=== PATIENT | female | born 1975 | race Two or more races ===

== ENCOUNTER 2018-04-10 21:58 | Emergency (ER) | payer OTHER ==
[~2018-04-10] VITALS: Ht 167.6 cm; Wt 60.3 kg
[~2018-04-10 21:58] MED LIST: CETI10TA22 PO; FLUT9.9S NS
--- NOTE | 2018-04-10 22:03 | ED.ADGEN ---
Past History Past Medical History: No Pertinent History Past Surgical History: No Surgical History Alcohol Use: None Drug Use: None Adult General Chief Complaint Chief Complaint ".. I trying to get some extra work hours.. and there was this pallet....with washing machine... and the pallet came down on my Lt. Little finger... and I tried to pull it out... and it daija pulled the tip of my finger off... " HPI HPI Patient is a 43 year old female who presents with above hx and complaints of deglove crush injury to Lt. 5th finger tip while working at [employer]. . Patient does not remember her last tetanus. Pt. does have flexion and extension. Tip of finger no capillary refill or two point sensation. Nail of finger dislocated from it's bed. No other injuries reported. Pt. in Rt. hand dominate. No hx. of immunosuppression. Review of Systems Review of Systems Constitutional: Denies fever or chills [] Eyes: Denies change in visual acuity, redness, or eye pain [] HENT: Denies nasal congestion or sore throat [] Respiratory: Denies cough or shortness of breath [] Cardiovascular: No additional information not addressed in HPI [] GI: Denies abdominal pain, nausea, vomiting, bloody stools or diarrhea [] : Denies dysuria or hematuria [] Musculoskeletal: Denies back pain or joint pain []Crush Injury, deglove and fx. Lt 5th finger tip. Integument: Denies rash or skin lesions [] Neurologic: Denies headache, focal weakness or sensory changes [] Endocrine: Denies polyuria or polydipsia [] All other systems were reviewed and found to be within normal limits, except as documented in this note. Family History Family History Non-contributory Current Medications Current Medications Current Medications Medications (Trade) Dose Ordered Sig/Yakelin Start Time Stop Time Status Last Admin Dose Admin Aspirin (Children'S Aspirin) 81 mg 1X ONCE 04/10/18 23:55 04/10/18 23:56 DC Bupivacaine HCl (Sensorcaine Mpf 0.5%) 30 ml 1X ONCE 04/10/18 23:00 04/10/18 23:01 DC Ceftriaxone Sodium (Rocephin Im) 1 gm 1X ONCE 04/10/18 23:00 04/10/18 23:01 DC 04/10/18 23:29 1 GM Lidocaine HCl 20 ml 1X ONCE 04/10/18 23:00 04/10/18 23:01 DC Morphine Sulfate (Morphine 10mg Syringe) 10 mg 1X ONCE 04/10/18 22:30 04/10/18 22:31 DC 04/10/18 22:27 10 MG Tetanus/ Diphtheria Toxoids Adsorbed (Tenivac Vial) 0.5 ml ONCE ONCE 04/10/18 23:00 04/10/18 23:01 DC 04/10/18 23:29 0.5 ML Allergies Allergies Allergies Coded Allergies Type Severity Reaction Last Updated Verified No Known Drug Allergies 03/27/15 No Physical Exam Physical Exam Constitutional:in acute distress, non-toxic appearance. [] HENT: Normocephalic, atraumatic, bilateral external ears normal, oropharynx moist, no oral exudates, nose normal. [] Eyes: PERRLA, EOMI, conjunctiva normal, no discharge. [] Neck: Normal range of motion, no tenderness, supple, no stridor. [] Cardiovascular:Heart rate regular rhythm, no murmur [] Lungs & Thorax: Bilateral breath sounds clear to auscultation [] Abdomen: Bowel sounds normal, soft, no tenderness, no masses, no pulsatile masses. [] Skin: Warm, dry, no erythema, no rash. [] Back: No tenderness, no CVA tenderness. [] Extremities: No tenderness, no cyanosis, no clubbing, ROM intact, no edema. [] Except 5th finger Lt hand as per HPI. Neurologic: Alert and oriented X 3, normal motor function, normal sensory function, no focal deficits noted. [] Psychologic: Affect normal, judgement normal, mood normal. [] Current Patient Data Vital Signs Vital Signs Date Time Temp Pulse Resp B/P (MAP) Pulse Ox O2 Delivery O2 Flow Rate FiO2 04/11/18 00:10 98.3 74 16 121/67 (85) 96 Room Air EKG EKG [] Radiology/Procedures Radiology/Procedures My interpretation of X-ray shows crush fx Lt 5 th finger tip. [] Course & Med Decision Making Course & Med Decision Making Pertinent Labs and Imaging studies reviewed. (See chart for details) Procedure Note: Laceration repair and bulk splint.- Finger washed with surgical soap. Digital block with sensorcaine and lidocaine. Wound re- irrigated with liter of normal saline in range of motion. Placed 6-x Prolene 4 -0 to approximate tip of finger. Polysporin. Bulk dressing and splint. Pt. to take daily Aspirin 81 mg. Tylenol and Ibuprofen for pain. Marked pain take Vicoprofen up 4 x day. . Polysporin 4 x day once initial dressing removed. Dressing must be changed immediately if soil or wet. Take Keflex 500 three times a day x 7 days. Bulk splint. High probability lost of fingertip. Must follow with work comp. Will need input of plastic or hand surgery. Must follow up. Sutures out in 10 days. [] Final Impression Final Impression 1. Crush, fracture and deglove injury to Lt 5th finger. [] Dragon Disclaimer Dragon Disclaimer This electronic medical record was generated, in whole or in part, using a voice recognition dictation system. REGAN OTT MD Apr 10, 2018 22:03
[2018-04-10] MEDS ORDERED: MORPHINE SULFATE 10 MG/ML SYRINGE. SQ ONE (22:30)
[2018-04-10] MEDS ORDERED: BUPIVACAINE MPF 0.5% 30 ML VIAL. SQ ONE (23:00)
[2018-04-10] MEDS ORDERED: LIDOCAINE 2% 20 ML VIAL. IJ ONE (23:00)
[2018-04-10] MEDS ORDERED: cefTRIAXone IM 1 GM VIAL IM ONE (23:00)
[2018-04-10] MEDS ORDERED: TETANUS AND DIPHTHERIA TOX/PF 0.5 ML VIAL. VAX IM ONE (23:00)
[2018-04-10] MEDS ORDERED: HYDR-79 PO (23:35)
[2018-04-10] MEDS ORDERED: CEPH-264 PO (23:35)
[2018-04-10] MEDS ORDERED: ASPIRIN 81 MG TAB.CHEW PO ONE (23:55)
[2018-04-11 00:10] VITALS: BP 121/67
--- NOTE | 2018-04-11 02:32 | RAD ---
Indication: [place] left hand fifth digit. TECHNIQUE: 3 views of the left hand COMPARISON: None FINDINGS: Moderately displaced fracture of the tuft of the fifth finger with associated soft tissue laceration. IMPRESSION: As above. Electronically signed by: Mauro Gamino DO (04/11/2018 2:28 AM) [facility]
== END 2018-04-11 00:10 | disposition home or self-care (01) ==
LOC: ER 21:58
DX: S62.607A Fracture of unspecified phalanx of left little finger, initial encounter for closed fracture (principal); W23.0XXA Caught, crushed, jammed, or pinched between moving objects, initial encounter; Y93.89 Activity, other specified; Y99.8 Other external cause status; Y92.89 Other specified places as the place of occurrence of the external cause
CPT/HCPCS: 12001; 73130; 90471; 90714; 96372; 99284; J0696; J2270; 29130

== ENCOUNTER → 2018-06-20 | Outpatient (CLI) | payer OTHER ==
[~2018-06-20] MED LIST changes: +CEPH-264 PO; +HYDR-79 PO
--- NOTE | 2018-06-20 17:38 | RAD ---
EXAM: PA view of the left hand, lateral view of the left small finger DATE: 06/20/2018 12:00 AM INDICATION: FOLLOW UP FOR LEFT 5TH DIGIT FRACTURE FROM 04/10, STILL HAVING PAIN COMPARISON: Radiograph 04/10/2018 FINDINGS/ IMPRESSION: Small finger tuft avulsion fracture is again seen, mildly displaced. The degree of soft tissue swelling and irregularity has improved. Electronically signed by: Medardo Young MD (06/20/2018 5:34 PM) [facility]
== END | disposition home or self-care (01) ==
LOC: PMG 10:52
PROVIDERS: ATTEND Physician Assistant
DX: S62.607D Fracture of unspecified phalanx of left little finger, subsequent encounter for fracture with routine healing (principal); M79.89 Other specified soft tissue disorders; G43.909 Migraine, unspecified, not intractable, without status migrainosus; X58.XXXD Exposure to other specified factors, subsequent encounter
CPT/HCPCS: 73140

== ENCOUNTER 2019-05-29 19:42 | Emergency (ER) | payer OTHER ==
[~2019-05-29] VITALS: Ht 167.6 cm; Wt 64.0 kg
[~2019-05-29 19:42] MED LIST changes: +HYDR-1179 PO; -HYDR-79 PO
[2019-05-29] MEDS ORDERED: IV NORMAL SALINE 1,000ML 1,000 ML IV ONE (20:30)
[2019-05-29] MEDS ORDERED: METOCLOPRAMIDE HCL 10 MG/2 ML VIAL. IV ONE (20:30)
[2019-05-29] MEDS ORDERED: DEXAMETHASONE SOD PHOS 10 MG/ML VIAL IV ONE (20:30)
[2019-05-29] MEDS ORDERED: diphenhydrAMINE 50 MG/ML VIAL IVP ONE (20:30)
[2019-05-29] MEDS ORDERED: ASPIRIN 325 MG TABLET PO ONE (20:30)
[2019-05-29] MEDS ORDERED: KETOROLAC 15 MG/ML VIAL. IV ONE (20:30)
[2019-05-29 21:33] LABS: BASO # 0.1 x10^3/uL (0.0-0.2); BASO % 1 % (0-3); EOS # 0.1 x10^3/uL (0.0-0.7); EOS % 2 % (0-3); HEMATOCRIT 39.8 % (36.0-47.0); HEMOGLOBIN 13.3 g/dL (12.0-15.5); LYMPH # 2.3 x10^3/uL (1.0-4.8); LYMPH % 29 % (24-48); MEAN CORPUSCULAR HEMOGLOBIN 31 pg (25-35); MEAN CORPUSCULAR HGB CONC 33 g/dL (31-37); MEAN CORPUSCULAR VOLUME 94 fL (79-100); MONO # 0.6 x10^3/uL (0.0-1.1); MONO % 7 % (0-9); NEUT % 62 % (31-73); PLATELET COUNT 323 x10^3/uL (140-400); RED BLOOD COUNT 4.26 x10^6/uL (3.50-5.40); RED CELL DISTRIBUTION WIDTH 13.7 % (11.5-14.5); WHITE BLOOD COUNT 8.2 x10^3/uL (4.0-11.0)
[2019-05-29 21:55] LABS: ALBUMIN 3.8 g/dL (3.4-5.0); ALBUMIN/GLOBULIN RATIO 1.1 (1.0-1.7); CALCIUM 9.1 mg/dL (8.5-10.1); CREATININE 0.9 mg/dL (0.6-1.0); GFR 68.3; MAGNESIUM 2.2 mg/dL (1.8-2.4); TOTAL BILIRUBIN 0.1 mg/dL (0.2-1.0); TOTAL PROTEIN 7.2 g/dL (6.4-8.2)
[2019-05-29 23:24] VITALS: BP 103/65
--- NOTE | 2019-05-29 23:32 | PHYS DOC ---
Past History Past Medical History: Asthma, Migraines Past Surgical History: Tubal ligation Alcohol Use: None Drug Use: None Adult General Chief Complaint Chief Complaint: CHEST PAIN HPI HPI Patient is a [age] year old [sex] who presents with [] Review of Systems Review of Systems Constitutional: Denies fever or chills [] Eyes: Denies change in visual acuity, redness, or eye pain [] HENT: Denies nasal congestion or sore throat [] Respiratory: Denies cough or shortness of breath [] Cardiovascular: No additional information not addressed in HPI [] GI: Denies abdominal pain, nausea, vomiting, bloody stools or diarrhea [] : Denies dysuria or hematuria [] Musculoskeletal: Denies back pain or joint pain [] Integument: Denies rash or skin lesions [] Neurologic: Denies headache, focal weakness or sensory changes [] Endocrine: Denies polyuria or polydipsia [] All other systems were reviewed and found to be within normal limits, except as documented in this note. Current Medications Current Medications Current Medications Medications (Trade) Dose Ordered Sig/Yakelin Start Time Stop Time Status Last Admin Dose Admin Aspirin (Jenna Aspirin) 325 mg 1X ONCE 05/29/19 20:30 05/29/19 20:31 DC 05/29/19 21:07 325 MG Dexamethasone Sodium Phosphate (Decadron) 10 mg 1X ONCE 05/29/19 20:30 05/29/19 20:31 DC 05/29/19 21:09 10 MG Diphenhydramine HCl (Benadryl) 50 mg 1X ONCE 05/29/19 20:30 05/29/19 20:31 DC 05/29/19 21:08 50 MG Ketorolac Tromethamine (Toradol 15mg Vial) 15 mg 1X ONCE 05/29/19 20:30 05/29/19 20:31 DC 05/29/19 21:07 15 MG Metoclopramide HCl (Reglan Vial) 10 mg 1X ONCE 05/29/19 20:30 05/29/19 20:31 DC 05/29/19 21:08 10 MG Sodium Chloride 1,000 ml @ 1,000 mls/hr 1X ONCE 05/29/19 20:30 05/29/19 21:29 DC 05/29/19 21:06 1,000 MLS/HR Allergies Allergies Allergies Coded Allergies Type Severity Reaction Last Updated Verified No Known Drug Allergies 03/27/15 No Physical Exam Physical Exam Constitutional: Well developed, well nourished, no acute distress, non-toxic appearance. [] HENT: Normocephalic, atraumatic, bilateral external ears normal, oropharynx moist, no oral exudates, nose normal. [] Eyes: PERRLA, EOMI, conjunctiva normal, no discharge. [] Neck: Normal range of motion, no tenderness, supple, no stridor. [] Cardiovascular:Heart rate regular rhythm, no murmur [] Lungs & Thorax: Bilateral breath sounds clear to auscultation [] Abdomen: Bowel sounds normal, soft, no tenderness, no masses, no pulsatile masses. [] Skin: Warm, dry, no erythema, no rash. [] Back: No tenderness, no CVA tenderness. [] Extremities: No tenderness, no cyanosis, no clubbing, ROM intact, no edema. [] Neurologic: Alert and oriented X 3, normal motor function, normal sensory function, no focal deficits noted. [] Psychologic: Affect normal, judgement normal, mood normal. [] Current Patient Data Vital Signs Vital Signs Date Time Temp Pulse Resp B/P (MAP) Pulse Ox O2 Delivery O2 Flow Rate FiO2 05/29/19 19:55 98.7 76 18 Room Air Lab Results Laboratory Tests Test 05/29/19 21:00 05/29/19 21:17 05/29/19 22:50 White Blood Count 8.2 x10^3/uL (4.0-11.0) Red Blood Count 4.26 x10^6/uL (3.50-5.40) Hemoglobin 13.3 g/dL (12.0-15.5) Hematocrit 39.8 % (36.0-47.0) Mean Corpuscular Volume 94 fL (79-100) Mean Corpuscular Hemoglobin 31 pg (25-35) Mean Corpuscular Hemoglobin Concent 33 g/dL (31-37) Red Cell Distribution Width 13.7 % (11.5-14.5) Platelet Count 323 x10^3/uL (140-400) Neutrophils (%) (Auto) 62 % (31-73) Lymphocytes (%) (Auto) 29 % (24-48) Monocytes (%) (Auto) 7 % (0-9) Eosinophils (%) (Auto) 2 % (0-3) Basophils (%) (Auto) 1 % (0-3) Neutrophils # (Auto) 5.0 x10^3uL (1.8-7.7) Lymphocytes # (Auto) 2.3 x10^3/uL (1.0-4.8) Monocytes # (Auto) 0.6 x10^3/uL (0.0-1.1) Eosinophils # (Auto) 0.1 x10^3/uL (0.0-0.7) Basophils # (Auto) 0.1 x10^3/uL (0.0-0.2) D-Dimer (Ivory) < 0.19 mg/L (0.00-0.50) Sodium Level 139 mmol/L (136-145) Potassium Level 4.0 mmol/L (3.5-5.1) Chloride Level 106 mmol/L (98-107) Carbon Dioxide Level 24 mmol/L (21-32) Anion Gap 9 (6-14) Blood Urea Nitrogen 20 mg/dL (7-20) Creatinine 0.9 mg/dL (0.6-1.0) Estimated GFR (Cockcroft-Gault) 68.3 BUN/Creatinine Ratio 22 (6-20) H Glucose Level 86 mg/dL (70-99) Calcium Level 9.1 mg/dL (8.5-10.1) Magnesium Level 2.2 mg/dL (1.8-2.4) Total Bilirubin 0.1 mg/dL (0.2-1.0) L Aspartate Amino Transferase (AST) 15 U/L (15-37) Alanine Aminotransferase (ALT) 16 U/L (14-59) Alkaline Phosphatase 82 U/L (46-116) Troponin I Quantitative < 0.017 ng/mL (0-0.055) < 0.017 ng/mL (0-0.055) QA-Hbh-H-Type Natriuretic Peptide 22 pg/mL (0-124) Total Protein 7.2 g/dL (6.4-8.2) Albumin 3.8 g/dL (3.4-5.0) Albumin/Globulin Ratio 1.1 (1.0-1.7) Lipase 219 U/L (73-393) POC Urine HCG, Qualitative hcg negative (Negative) EKG EKG @2041 NSR at 70bpm, NO ST elevation, baseline artifact noted throughout Radiology/Procedures Radiology/Procedures [] Course & Med Decision Making Course & Med Decision Making Pertinent Labs and Imaging studies reviewed. (See chart for details) [] Dragon Disclaimer Dragon Disclaimer This electronic medical record was generated, in whole or in part, using a voice recognition dictation system. Departure Departure: Impression: Primary Impression: Chest pain Disposition: HOME, SELF-CARE Condition: STABLE Referrals: RICCARDO TOWNSEND DO (PCP) MANNY WHALEN MD Patient Instructions: Chest Pain (Nonspecific), Abec-pl-Vduo Problem Qualifiers Primary Impression: Chest pain Chest pain type: unspecified Qualified Codes: R07.9 - Chest pain, unspecified ROSMERY ARAGON DO May 29, 2019 23:32
--- NOTE | 2019-05-30 06:49 | EKG ---
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
--- NOTE | 2019-05-30 08:07 | RAD ---
EXAM: PA and Lateral Views of the Chest DATE: 05/29/2019 10:19 PM INDICATION: Chest pain COMPARISON: No Prior FINDINGS: The heart is not enlarged. Mediastinal and hilar contours are normal. No focal parenchymal airspace opacity. No pleural effusion or pneumothorax. IMPRESSION: 1. No radiographic evidence for acute cardiopulmonary process. Electronically signed by: Medardo Young MD (05/30/2019 8:05 AM) [facility]
== END 2019-05-29 23:45 | disposition home or self-care (01) ==
LOC: ER 19:42
DX: R07.89 Other chest pain (principal); R11.10 Vomiting, unspecified; G43.909 Migraine, unspecified, not intractable, without status migrainosus; J45.909 Unspecified asthma, uncomplicated
CPT/HCPCS: 36415; 71046; 80053; 81025; 83690; 83735; 83880; 84484; 85025; 85379; 93005; 96361; 96374; 96375; 99285; J1100; J1200; J1885; J2765; J7030

== ENCOUNTER 2020-12-08 17:45 | Emergency (ER) | payer OTHER ==
[~2020-12-08] VITALS: Ht 172.7 cm; Wt 75.4 kg
[~2020-12-08 17:45] MED LIST changes: -CETI10TA22 PO; +CETI10TA74 PO
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
[2020-12-08] MEDS ORDERED: IBUPROFEN 600 MG TABLET. PO ONE (19:00)
--- NOTE | 2020-12-08 19:12 | RAD ---
INDICATION: Reason: cp / Spl. Instructions: / History: COMPARISON: May 2019 FINDINGS: Single view of chest obtained. No focal airspace consolidation. Cardiomediastinal contour unremarkable. No acute osseous abnormality. IMPRESSION: * No focal airspace consolidation or edema. Electronically signed by: Osito Cisse MD (12/08/2020 7:09 PM) [id number]
--- NOTE | 2020-12-08 19:18 | EKG ---
[address] [address] Test Date: 2020-12-08 Test Time: 18:51:04 Pat Name: ROXANA NICOLAS Department: Room: Gender: F Test Carrier: : 1975 Requested By: YORDAN AGUILAR Order Number: [id number] Reading MD: Measurements Intervals [place] Rate: 67 P: 0 OR: 126 QRS: 66 QRSD: 90 T: 24 QT: 392 QTc: 417 Interpretive Statements SINUS RHYTHM NORMAL ECG RI6.02 No previous ECG available for comparison
[2020-12-08 19:54] VITALS: BP 112/65
== END 2020-12-08 19:54 | disposition home or self-care (01) ==
LOC: ER 17:45
DX: R07.2 Precordial pain (principal); M25.562 Pain in left knee; G43.909 Migraine, unspecified, not intractable, without status migrainosus; V89.2XXA Person injured in unspecified motor-vehicle accident, traffic, initial encounter; Y93.89 Activity, other specified; Y92.481 Parking lot as the place of occurrence of the external cause; Y99.8 Other external cause status
CPT/HCPCS: 71045; 93005; 99283